=== PATIENT | female | born 1980 | race Caucasian/White ===

== ENCOUNTER 2023-07-14 05:30 | Day surgery (SDC) | payer OTHER ==
[2023-07-08 11:28] VITALS: BP 126/92
[~2023-07-14] VITALS: Ht 157.5 cm; Wt 87.3 kg
--- NOTE | ~2023-07-14 | OR ---
[id number] [place], [place] [address] [place] DATE OF OPERATION: 07/14/2023 SURGEON: Ion Lamas DO PREOPERATIVE DIAGNOSES: 1. Adenomyosis. 2. Dysmenorrhea. 3. Abnormal uterine bleeding. POSTOPERATIVE DIAGNOSES: 1. Adenomyosis. 2. Dysmenorrhea. 3. Abnormal uterine bleeding. PROCEDURES PERFORMED: 1. Total laparoscopic hysterectomy. 2. Bilateral salpingectomy remaining fallopian tubes. 3. Cystoscopy. BOAT ENGINE MECHANIC: Whitney Watson MD. ANESTHESIA: General. ESTIMATED BLOOD LOSS: 15 mL. SPECIMENS: Uterus, cervix, and portions of residual fallopian tubes bilaterally. DRAINS: Lee to gravity. FINDINGS: Normal external genitalia with normal clitoris, urethral meatus, bilateral [place]'s, Bartholin's glands. Normal vagina and cervix. On laparoscopy, normal liver and stomach. Normal-appearing uterus and ovaries with some residual fallopian tube tissue bilaterally. Hemostasis at the end of the procedure with excellent apical support. On cystoscopy, normal bladder with bilateral ureteral jets. PATIENT NAME: LISA STEINER OPERATIVE REPORT DATE OF : 76 REPORT #: [id number] PHYSICIAN: ION LAMAS) PCP: JUAN PABLO ABREU NP REPORT IS CONFIDENTIAL AND NOT TO BE RELEASED WITHOUT AUTHORIZATION [address] [address] [place] COMPLICATIONS: None. INDICATIONS: Ms. Steiner is a very pleasant 42-year-old G5, P2 female, who presents with worsening menstrual cycles. The patient with imaging and symptoms consistent with adenomyosis. She desires definitive treatment. Risks, benefits, and alternatives were discussed in detail with the patient. The patient understands and wished to proceed with total laparoscopic hysterectomy. DESCRIPTION OF PROCEDURE: The patient was taken to the OR where time-out was performed to confirm correct patient and correct procedure. General anesthesia was adequately established. The patient was prepped and draped in the dorsal lithotomy position with her feet in Yellofin stirrups. ICPs were on and running. The patient received Ancef 2 g preoperatively as well as heparin 5000 units preoperatively. A Lee catheter was inserted. A weighted speculum was placed in the vagina and the anterior lip of the cervix was grasped with an Allis clamp. The cervix was gently dilated using Hegar dilators and a VCare uterine manipulator was placed without difficulty. The surgeon's gloves were changed and attention was turned to the abdomen. Just inferior to the umbilicus, the skin was infiltrated with 0.25% Marcaine with epinephrine. The skin was incised. The fascia was grasped with hemostats, elevated, and entered sharply with Metzenbaum scissors. Stay sutures of 0 Vicryl placed in the superior and inferior edge of the fascial incision. The peritoneum was then entered bluntly. An S retractor was used to elevate the peritoneal surface. A Steffi operative port was placed without difficulty and pneumoperitoneum was established with low opening pressures. Survey of the abdomen and pelvis was performed demonstrating normal liver, stomach, normal uterus with some residual fallopian tube tissue bilaterally, normal remainder of the pelvis. A 5 mm assist port was placed in the left lower quadrant under direct visualization. An 8 mm expanding port was placed in the right lower quadrant under direct visualization without complication. Attention was turned to the pelvis. Residual portions of fimbria and fallopian tubes were excised using LigaSure device. The left uteroovarian ligament was then fulgurated and divided with excellent hemostasis. The left round ligament was fulgurated and divided. The leaves of the broad ligament were divided. The uterine vessels were fulgurated and divided with excellent hemostasis. The process was repeated on the right with fulguration division of the right utero-ovarian ligament, round ligament, and division of the leaves of the broad ligament. The right uterine vessels were identified, fulgurated and divided with excellent hemostasis. Colpotomy was then performed using Sonicision device and the uterus and cervix were removed through the vaginal opening. Pneumoperitoneum was reestablished by placing a wet lap sponge inside of a glove and inside the vagina. The pelvis was irrigated and found to be hemostatic. PATIENT NAME: LISA STEINER OPERATIVE REPORT DATE OF : 76 REPORT #: [id number] PHYSICIAN: ION LAMAS) PCP: JUAN PABLO ABREU NP REPORT IS CONFIDENTIAL AND NOT TO BE RELEASED WITHOUT AUTHORIZATION [address] [address] [place] Colpotomy was repaired using V-Loc suture with an Endostitch device with careful attention to incorporate the uterosacral ligaments bilaterally as well as incorporate the vaginal epithelium with each bite. Excellent hemostasis and apical support was appreciated. The pelvis was again irrigated and hemostatic. Pneumoperitoneum was reduced. Trocars were removed. Infraumbilical fascia was repaired using 0 Vicryl in a running nonlocked manner and the previously placed stay sutures were plicated to reinforce the fascial incision. Skin was reapproximated using 4-0 Vicryl Rapide in a subcuticular stitch with excellent hemostasis. Lee catheter was removed and a 70-degree cystoscope was placed in the urethral meatus and advanced under direct visualization to the bladder. Normal bladder dome and bilateral ureteral jets was appreciated. The bladder was drained. Lee catheter was inserted. The patient was taken to PACU in good and stable condition. Sponge, needle and instrument counts were correct x2 at the end of the procedure. Dr. Watson was present and participated in all portions of the procedure. DO LINDSAY Molina/CHE /[id number] Copies: ~ PATIENT NAME: LISA STEINER OPERATIVE REPORT DATE OF : 76 REPORT #: [id number] PHYSICIAN: ION LAMAS DO (JD) PCP: JUAN PABLO ABREU NP REPORT IS CONFIDENTIAL AND NOT TO BE RELEASED WITHOUT AUTHORIZATION
[~2023-07-14 05:30] MED LIST: ADVIL200 MG PO; LACTATED RINGER'S 1,000 ML IV SCH
[2023-07-14 06:01] VITALS: BP 117/78
[2023-07-14] MEDS ORDERED: TYLENOL EXTRA500 MG PO (06:03)
[2023-07-14] MEDS ORDERED: LIDOCAINE HCL 2% 5 ML SDV ONE (06:52)
[2023-07-14] MEDS ORDERED: KETOROLAC TROMETHAMINE 30 MG/ML VIAL ONE (06:52)
[2023-07-14] MEDS ORDERED: ACETAMINOPHEN 1,000 MG/100 ML VIAL ONE (06:52)
[2023-07-14] MEDS ORDERED: MIDAZOLAM HCL 2 MG/2 ML VIAL ONE (06:52)
[2023-07-14] MEDS ORDERED: ROCURONIUM BROMIDE 50 MG/5 ML SYR ONE (06:52)
[2023-07-14] MEDS ORDERED: KETAMINE in NS 50 MG/5 ML SYR ONE (06:52)
[2023-07-14] MEDS ORDERED: LIDOCAINE HCL 2% 20 MG/ML VIAL INJ ONE (06:52)
[2023-07-14] MEDS ORDERED: SUGAMMADEX SODIUM 200 MG/2 ML ML ONE (06:52)
[2023-07-14] MEDS ORDERED: DEXAMETHASONE SOD PHOS 4 MG/ML VIAL ONE (06:52)
[2023-07-14] MEDS ORDERED: ondansetron HCL 4 MG/2 ML VIAL ONE (06:52)
[2023-07-14] MEDS ORDERED: fentaNYL citrate 100 MCG/2 ML VIAL ONE ×2 (06:52→08:39)
[2023-07-14] MEDS ORDERED: propofoL 200 MG/20 ML VIAL ONE (06:52)
[2023-07-14] MEDS ORDERED: IBLOOD GLUCOSE TEST STRIP 1 EA TEST VI PRN ×2 (07:00→08:45)
[2023-07-14] MEDS ORDERED: HEParin SOD (PORCINE) 5,000 UNIT/0.5 ML SYR SUB-Q SCH (07:00)
[2023-07-14] MEDS ORDERED: CEFAZOLIN SODIUM 2 GM/20 ML SYR IV SCH (07:00)
[2023-07-14] MEDS ORDERED: LIDOCAINE HCL 1% 5 ML SDV INJ ONE (07:00)
[2023-07-14] MEDS ORDERED: HYDROmorphone HCL 1 MG/ML SYR IV PRN (08:45)
[2023-07-14] MEDS ORDERED: PROCHLORPERAZINE EDISYLATE 10 MG/2 ML VIAL IV PRN (08:45)
[2023-07-14] MEDS ORDERED: droPERidol 5 MG/2 ML VIAL IV PRN (08:45)
[2023-07-14] MEDS ORDERED: ondansetron HCL 4 MG/2 ML VIAL IV PRN ×2 (08:45→09:30)
[2023-07-14] MEDS ORDERED: NALOXONE HCL 0.4 MG SYR IV PRN ×2 (08:45→09:30)
[2023-07-14] MEDS ORDERED: fentaNYL citrate 50 MCG/ML SDV IV PRN (08:45)
[2023-07-14] MEDS ORDERED: FLUORESCEIN SODIUM 500 MG/5 ML ML ONE (09:00)
[2023-07-14] MEDS ORDERED: LACTATED RINGER'S 1,000 ML IV ONE (09:04)
[2023-07-14] MEDS ORDERED: MAGNESIUM HYDROXIDE/AL HYDROX 30 ML CUP PO PRN (09:30)
[2023-07-14] MEDS ORDERED: FAMOTIDINE 20 MG/ 2 ML VIAL IV PRN (09:30)
[2023-07-14] MEDS ORDERED: SIMETHICONE 125 MG TABLET CHEWABLE PO PRN (09:30)
[2023-07-14] MEDS ORDERED: OXYCODONE/APAP 5/325 TAB PO PRN (09:30)
[2023-07-14] MEDS ORDERED: METOCLOPRAMIDE HCL 10 MG/2 ML SDV IV PRN (09:30)
--- NOTE | 2023-07-14 09:44 | NUR ---
07/14/23 0944 SangeetaAlma 0926- PT ARRIVES TO PACU REACTIVE TO STIMULI. PT REPORTS SHE IS PAINFUL, DOES NOT PROVIDE A NUMBER AND FALLS BACK TO SLEEP EASILY. RESP EVEN AND UNLABORED. OXYGEN SAT HIGH 90'S TO 100% ON 6L VIA MASK. 0929- PT WAKES UP PERIODICALLY, STATING SHE IS IN PAIN AND FALLS BACK TO SLEEP. SOCK LINING STITCHER HAD GIVEN PT PAIN MEDICATION PRIOR TO COMING TO PACU. 0936- PT WOKEN UP AND ENCOURAGED TO TAKE BREATHS. OXYGEN SAT 86% ON RA. WITH DEEP BREATHS OXYGEN SAT IMPROVED TO THE MID TO HIGH 90'S ON RA. PT REPORTS SHE NEEDS A SLEEP STUDY BUT IS UNABLE TO AFFORD IT CURRENTLY. 0940- DR. BETTENCOURT AT THE BEDSIDE TO TALK WITH THE PT.
[2023-07-14 10:35] VITALS: BP 138/83
--- NOTE | 2023-07-14 10:53 | NUR ---
LE 1035-PT BACK TO ROOM FROM PACU ON 2L VIA IA. RECEIVED REPORT FROM JOHNNY WATSON. PT IS AWAKE. RESP EVEN AND UNLABORED. RATES PAIN 5/10. DENIES NAUSEA. PT DRINKING WATER. PROVIDED PT WITH PUDDING. MOM IN ROOM WITH PT. CALL LIGHT WITH IN [facility]. LE 1040-O2 TITRATED OFF. O2 SATS IN THE HIGH 90'S. WILL KEEP PULSE OX ON. DENIES NAUSEA AFTER EATING PUDDING. LE 1043-PAIN MEDICATION GIVEN PER EMAR.
--- NOTE | 2023-07-14 11:12 | NUR ---
LE 1058-PT UP TO BEDSIDE. PT STATES A LITTLE DIZZY. LE 1059-PT AMBULATES TO RESTROOM WITH THIS RN AND STUDENT NURSE. GAIT STEADY AND TOLERATED WELL. PT VOIDS SMALL AMOUNT. LE 1105-PT BACK TO BED. WARM BLANKET PROVIDED. BED RAILS UP. CALL LIGHT WITHIN REACH. NO OTHER NEEDS AT THIS TIME.
[2023-07-14 11:37] VITALS: BP 131/84
--- NOTE | 2023-07-14 11:42 | NUR ---
PT LAYING IN BED AWAKE. RESP EVEN AND UNLABORED. RATES PAIN 3/10 AND THIS IS TOLERABLE. DENIES NAUSEA. SMALL AMOUNT OF DRAINAGE ON LLQ AND RLQ BANDAIDS. PROVIDED PT WITH MORE WATER. LIGHT DIMMED. NO OTHER NEEDS AT THIS TIME. CALL LIGHT WITHIN REACH.
[2023-07-14 12:35] VITALS: BP 141/75
[2023-07-14] MEDS ORDERED: SIMETHICONE 125 MG TABLET CHEWABLE PO SCH (13:00)
--- NOTE | 2023-07-14 15:55 | NUR ---
LE 1200-PT UP TO RESTROOM WITH 1 RN ASSIST. PT VOIDS AN UNMEASURABLE AMOUNT. LE 1205-PT BACK TO BED. CALL LIGHT WITHIN REACH.
--- NOTE | 2023-07-14 15:56 | NUR ---
PAYTON 1235-PT LAYING IN BED AWAKE. RESP EVEN AND UNLABORED. RATES PAIN 4/10. SMALL AMOUNT OF RED DRAINAGE ON RLQ AND LLQ BANDAIDS. PT IS READY TO GO HOME. PT WILL GET DRESSED. PT'S MOM IN ROOM TO HELP. CALL LIGHT WITHIN REACH.
--- NOTE | 2023-07-14 16:01 | NUR ---
1300-WENT OVER DISCHARGE INSTRUCTIONS WITH PT. WENT OVER POSTOP MEDICATIONS. ALL QUESTIONS ANSWERED. PT AMBULATES TO WHEELCHAIR AND RIDE PROVIDED TO FRONT OF HOSPITAL WHERE HER MOM WAS WAITING WITH THE CAR.
--- NOTE | 2023-07-16 18:01 | PATH ---
[facility] [address] [place], [place] [address] Signed SPECIMEN(S): A UTERUS, CERVIX, REMNANTS OF TUBES SPECIMEN SOURCE: A. UTERUS, CERVIX, REMNANTS OF TUBES CLINICAL HISTORY: Adenomyosis; dysmenorrhea; AUB; cervical cancer screening. FINAL PATHOLOGIC DIAGNOSIS: Uterus, cervix, and remnants of tubes: - Secretory endometrium with focal adenomyosis. - Negative for endometrial atypia or evidence of malignancy. - Benign endo- and ectocervix. - Separately submitted fragments of benign vasculature. - Negative for oviducts. JVR:antione MICROSCOPIC EXAMINATION: Histologic sections of all submitted blocks are examined by light microscopy. These findings, together with the gross examination, support the pathologic diagnosis. GROSS DESCRIPTION: The specimen, labeled and designated "Jerod Floyd, " and designated on the requisition "uterus, cervix, remnants of fallopian tube," is received in formalin and consists of 82-gram uterus and cervix with portions of possible fallopian tube. The uterus and cervix are 4.1 x 4.0 x 7.8 cm (cornu-cornu x anterior-posterior x fundus-ectocervix). The serosal surface is violaceous and smooth. The ectocervical mucosa is pale pink and smooth. Serial sectioning of the cervix fails to demonstrate any gross abnormalities. The triangular endometrial cavity is lined by a pink smooth and focally congested endometrium that has an average thickness of 0.4 cm. Sectioning through the uterus reveals a pink moderately trabeculated myometrium with one pink indurated ill-defined nodule that is 1.8 cm in greatest dimension, deep to the endomyometrial junction. Separate within the container is a 2.1 x 0.7 cm tubular tissue fragment, which is inked blue and serially sectioned revealing multiple lumens. Also present within the container are three [id number] rubbery tissue fragments that measure up to 0.7 cm in greatest dimension. PATIENT NAME: LISA FLOYD PATHOLOGY DATE OF : 76 REPORT #: [id number] PHYSICIAN: [facility] PATHOLOG[facility] PCP: JUAN PABLO ABREU NP REPORT IS CONFIDENTIAL AND NOT TO BE RELEASED WITHOUT AUTHORIZATION [facility] [address] [place], [place] [address] Signed Account Manager Relief sections are submitted in four cassettes. Cassette Summary: (A1) cervix (A2) uterine wall (A3) ill-defined nodule deep to endomyometrium (A4) tubular structures and tissue separate within the container, entirely submitted FB (under the direct supervision of a pathologist) The Gross Description was prepared using a voice recognition system. The report was reviewed for accuracy; however, sound-alike word errors, addition and/or deletions may occur. If there is any question about this report, please contact Client Services. PERFORMING LABORATORY: Technical component was performed by [facility], [address] [place] [id number] (CLIA# [id number]). Professional interpretation was performed by [email or web address], [address] [place] [id number] (CLIA#: [id number]). Diagnostician: Hector Moseley MD Pathologist Electronically Signed 07/16/2023 Copies: ~ PATIENT NAME: LISA FLOYD CAREY PATHOLOGY DATE OF : 76 REPORT #: [id number] PHYSICIAN: [facility] PATHOLOG[facility] PCP: JUAN PABLO ABREU NP REPORT IS CONFIDENTIAL AND NOT TO BE RELEASED WITHOUT AUTHORIZATION
== END 2023-07-14 12:58 | disposition home or self-care (01) ==
LOC: OPS 05:30 → DS 05:30 → OPS 07:30 → DS 07:30 → OPS 12:58
PROVIDERS: ATTEND Obstetrics & Gynecology
PROC: 0UT94ZZ Resection of Uterus, Percutaneous Endoscopic Approach (ICD-10-PCS; principal; 2023-07-14 07:30)
PROC: 0UT74ZZ Resection of Bilateral Fallopian Tubes, Percutaneous Endoscopic Approach (ICD-10-PCS; 2023-07-14 07:30)
DX: N80.03 Adenomyosis of the uterus (principal); N94.6 Dysmenorrhea, unspecified; N93.9 Abnormal uterine and vaginal bleeding, unspecified; F17.200 Nicotine dependence, unspecified, uncomplicated; Z79.899 Other long term (current) drug therapy
CPT/HCPCS: 00840; J0131; J0690; J1100; J1170; J1644; J1885; J2001; J2250; J2405; J2704; J3010; J3490; J7121